=== PATIENT | female | born 1990 | race Caucasian/White ===

== ENCOUNTER 2025-02-11 22:42 | Observation (INO) | payer OTHER, SELFPAY ==
[2025-02-11 17:56] VITALS: BP 141/93
[2025-02-11 19:46] VITALS: BMI 26.6
[2025-02-11 19:49] VITALS: BP 131/99
--- NOTE | 2025-02-11 21:24 | ED.GENMED ---
History of Present Illness
General
Chief Complaint: Esophageal Problem
Source: patient
Exam Limitations: none
Time Seen by Provider: 02/11/25 19:56
Nursing documentation reviewed up to this point in time: agreed with
History of Present Illness
History of Present Illness:
Patient to ED with complaint of esophageal food bolus. States she was eating chicken at lunch, food became stuck. No difficulty breathing. Able to tolerate her secretions. Vomiting any po fluids. SHe had a similar event a few years ago. SHe
required removal of bolus in GI lab (another facility). To ED with sig other for eval.
Past History
Past History
ED Past Medical History: None
Review of Systems
Review of Systems
Allergies reviewed?: Yes
All Other Systems: ROS reviewed and negative except as documented in HPI and ROS
Constitutional: Reports no symptoms
EENT: Reports no symptoms
Respiratory: Reports no symptoms
Cardiac: Reports no symptoms
ABD/GI: Reports vomiting (esophageal food bolus, not tolerating po fluid) and other (esophageal food bolus)
: Reports no symptoms
Musculoskeletal: Reports no symptoms
Skin: Reports no symptoms
Neurological: Reports no symptoms
Psychiatric: Reports no symptoms
Phy Exam
General Physical Exam
General Presentation: mild distress
General age: appears stated age
General Skin: warm and dry
General Habitus: normal
Cardiovascular Exam
Cardiovascular Exam: regular rate/rhythm and no edema
Musculoskeletal Exam
Musculoskeletal Exam: full ROM
Skin Exam
Skin Exam: normal color, warm/dry and no rash
Psychiatric Exam
Psychiatric Exam: normal mood/affect
Course
Orders/Labs/Results
Orders:
Orders
02/11/25 20:25
Glucagon [GlucaGen] 1 mg IV NOW STA
02/11/25 21:37
Test Result ONCE
02/11/25 21:45
0.9% Sodium Chloride 1000 ml [Nss] 1,000 ml IV 125 mls/hr
02/11/25 22:02
Complete Blood Count/With Diff Urgent
Comprehensive Metabolic Panel Urgent
HCG, Serum Qualitative Screen Urgent
02/11/25 22:11
CR Chest - 2 Views Urgent
Comment:
Reason For Exam: swallowed fb
02/11/25 22:16
Admit/Transfer Patient As Directed
Co-Sign Provider:
Level of Care: Observation services
Assign to:: Medical/Surgical
Physician / Group: Bryant Grayson
Diagnosis: presumed esophageal food impaction
PRN Pain Medication Management As Directed
May give lesser potent ordered pain med per pt: Yes
preference::
Protocol:: Medication orders for pain may be administered in a
manner that supports deferring to patient preference
when the pt is:
- Requesting an ordered lesser potent pain medication.
Least to most potent pain medications are defined
as: acetaminophen < NSAID < tramadol < opioids
(morphine, oxycodone, hydromorphone).
- Requesting a lesser dose of the same medication IF
ORDERED.
- Requesting a less intrusive route of administration
if both routes are prescribed by the provider (PO <
IV).
02/11/25 22:17
Code Status As Directed
Resuscitation Status: Full Code
02/12/25 00:08
GASTROINTESTINAL CONSULT Routine
Consulting Provider: Jennifer Beatty
Was physician already notified: Yes
Activity As Directed
Activity Level: Ambulate
Intake/ Output As Directed
Frequency: Per unit guidelines
Pneumatic Compression Sleeves As Directed
Type: Knee high
Vital Signs As Directed
Frequency: Per unit guidelines
Weight As Directed
Frequency: Once
Comment: on admission
DX Deep Vein Thrombosis Video Routine
02/12/25 Breakfast
NPO
Allow oral meds: No
Allow clear liquids: No
Abnormal Lab Results
02/11/25
22:02
WBC 12.1 H 10^3/uL
(4.8-10.8)
RBC 4.19 L 10^6/uL
(4.20-5.40)
Hct 36.5 L %
(37.0-47.0)
MPV 10.9 H fL
(7.4-10.4)
Absolute Neuts (auto) 9.3 H 10^3/uL
(1.4-6.5)
Neutrophils % 76.7 H %
(42.2-75.2)
Lymphocytes % 17.7 L %
(20.5-51.1)
Glucose 144 H mg/dl
(70-99)
Total Bilirubin 1.8 H mg/dl
(0.2-1.3)
ALT 37 H U/L
(0-35)
02/11/25 22:02
02/11/25 22:02
Vital Signs
Initial and Last Documented VS:
Initial Vital Signs
Temp Pulse Resp BP Pulse Ox
98.4 F 80 16 141/93 100
02/11/25 17:56 02/11/25 17:56 02/11/25 17:56 02/11/25 17:56 02/11/25 17:56
Last Documented Vital Signs
Temp Pulse Resp BP Pulse Ox
98.8 F 57 18 105/56 96
02/12/25 00:05 02/12/25 00:05 02/12/25 00:05 02/12/25 00:05 02/12/25 00:05
*Pulse Oximetry
SaO2: 99
Oxygen Mode of Delivery: Room air
Patient hypoxic: no
*Critical Care Note
Total Time (30-74mins, 75-104mins- exclusive of procedures): Not Applicable
Update Note
Update Note:
Patient to ED wtih report of esophageal food bolus. Given glucagon in ED without improvement. Unable to tolerate po fluids. No difficulty breathing. Able to handle secretions. Dr. Beatty consulted. Requests admission tonight, to GI lab in AM
ED Attending Note
-
Portions of this chart may have been created with voice recognition software.� Occasional wrong word or��sound alike� substitutions may have occurred due to the inherent limitations of voice recognition software.
Discharge Plan
Departure
Patient Disposition: Admit
Date of Disposition: 02/11/25
Time of Disposition: 21:35
Presentation/result/management discussed w/ accepting MD/DO: Hospitalist
Patient with high blood pressure during this ER visit?: No
Condition: Fair
Covid-19: Not Applicable
Discharge Problem:
Food impaction of esophagus
Interventions
Interventions:
*Risk Screen - Suicide Last Done: 02/12/25 00:05
*General Assessment Last Done: 02/11/25 17:56
*Neglect/Abuse Screening Last Done: 02/11/25 19:47
*ED- Fall Risk Assessment Last Done: 02/11/25 19:47
*ED COVID-19 Vaccine History Last Done: 02/11/25 19:47
*ED Influenza Vaccine History Last Done: 02/11/25 19:47
*Nursing Disposition Last Done: 02/11/25 23:15
FQ-Glfzsp-[id number] Assessment Last Done: 02/11/25 19:57
ED-EENT Assessment Last Done: 02/11/25 19:57
Discharge Date and Time
Discharge Date/Time: 02/11/25 23:17
[2025-02-11 21:37] VITALS: BP 122/89
--- NOTE | 2025-02-11 21:46 | HPS.HSE ---
Family Physician
-
Family Physician: Naya Coreas
Chief Complaint
-
suspected food bolus impaction
History of Present Illness
Patient is a 34-year-old female with no significant past medical history who presented to [facility] ED for evaluation of suspected food bolus impaction. Patient reports eating chicken at lunch when she felt food become lodged in esophagus. She did have
emesis that contained food content at first and now seems to just have secretions that are coming up. Patient denies any difficulty breathing and is able to tolerate her secretions at this time. Patient reports similar episode a few years ago where
she required food bolus removal in GI lab.
Medical History
Past Medical History
Past Medical History: Reports None
Past Surgical History: Reports Other
Additional Past Surgical History:
endoscopy to remove food bolus
Social History
Tobacco: Non-smoker
Alcohol: Occasional
Drug: None
Employment: Employed
Family History
Family History: Not pertinent
Allergies / Home Medications
Allergies reflects when Allergies were last updated in [employer].
Home Medications with original date entered in [employer]
Allergy/Medication List:
Allergies
Allergy/AdvReac Type Severity Reaction Status Date / Time
No Known Allergies Allergy Verified 02/11/25 19:46
Home Medications
norgestimate-ethinyl estradiol 0.18mg/0.215mg/0.25mg-0.035mg(28)tablet 1 tab PO DAILY 02/11/25
Review of Systems
-
History Source: Patient
Constitutional: Denies Fever or Chills
EENT: Denies Sore Throat
Respiratory: Denies Cough or Trouble Breathing
Cardiac: Denies Chest Pain, Diaphoresis, Palpitations or Syncope
Abdomen/GI: Reports Nausea, Vomiting and Other (food impaction with emesis ); Denies Abdominal Pain or Diarrhea
: Denies Dysuria, Frequency, Flank Pain or Urgency
Skin: Denies Rash
Neurological: Denies Dizzy, Headache, Weakness or Numbness
Physical Exam
Vital Signs
Vital Signs
Temp Pulse Resp BP Pulse Ox
98.4 F 63 18 122/89 99
02/11/25 17:56 02/11/25 21:37 02/11/25 21:37 02/11/25 21:37 02/11/25 21:37
Physical Exam
General: Well Developed, Well Nourished, No Apparent Distress, Comfortable and Conversant
HEENT: NormoCephalic, Moist mucous membranes, PERRLA, Nose Appears Normal and Ears Appear Normal
Respiratory: Clear and Non Labored Respirations; No Wheezes, Rales, Rhonchi or Crackles
Cardiac: S1/S2 and Regular Rhythm; No Murmur, Rub, Gallop or Peripheral Edema
Breast: Deferred by me
GI: Soft, Non Tender, Non Distended and Normal Bowel Sounds
Rectal: Deferred by Provider
Genito-urinary: Deferred by me
Musculoskeletal: No Clubbing, No Cyanosis and No Edema
Skin: Warm and IV/Catheter Site
Neuro: Awake and AO x 3
Hematologic/Lymphatic: No Lymphadenopathy
Psych: Calm and Intact Judgment/Insight
Data Reviewed
-
Lab Data: Labs Reviewed by me
Impression/Plan
-
IMPRESSION/PLAN:
#presumed esophageal food impaction
emesis of all PO fluid intake
able to tolerate secretions
denies difficulty breathing
labs unremarkable
CXR: pending
- Admit to med/surg
- Consult GI
- NPO
- supportive care
Code status: full code
DVT prophylaxis: SCDs
--- NOTE | 2025-02-11 21:53 | W.PN.UPDATE ---
Update Note
Progress Note Update
This note serves as an addendum to the H&P by physical therapist clinic director ROSA MARIA�
Maureen Millan
HPI
34F no o prior PMHX seen at ER:
- pw presumed esophageal food bolus
- she was eating chicken at lunch, food became stuck.
- no difficulty breathing - able to tolerate her secretions.
- vomiting any po fluids
- similar event a few years ago- she required removal of bolus in GI lab (another facility).
Relevant VS
Temp Pulse Resp BP Pulse Ox
98.4 F 63 18 122/89 99
02/11/25 17:56 02/11/25 21:37 02/11/25 21:37 02/11/25 21:37 02/11/25 21:37
PE
Gen: NAD
HEENT: no oral pooling
Relevant Data: pending
ASSESSMENT & PLAN
Presumed esophageal food impaction
Vomiting PO fluid s
No difficulty breathing - able to tolerate her secretions.
- s/p Glucagon at ER
- CXR
- NPO and IVF
- GI consulted by ER - suggest EGD disimpaction in AM
DVT Px:SCD
Full code
OBS MS
[2025-02-11] MEDS: NSS 1000 IV (22:04)
[2025-02-11 22:08] LABS: Hematocrit 36.5 % (37.0-47.0); Hemoglobin 12.5 g/dL (12.0-16.0); Mean Corp Hgb Conc. 34.2 g/dL (33.0-37.0); Mean Corpuscular Volume 87.1 fL (81.0-99.0); Nucleated Red Blood Cells % 0 %; Platelet Count 172 10^3/uL (130-400); Red Cell Dist. Width 12.0 % (11.5-14.5)
[2025-02-11 22:18] LABS: HCG, Serum Qualitative Screen Negative
[2025-02-11 22:22] LABS: ALT (SGPT) 37 U/L (0-35); AST (SGOT) 32 U/L (14-36); Albumin 4.2 g/dl (3.5-5.0); Alkaline Phosphatase 52 U/L (38-126); Blood Urea Nitrogen 12 mg/dl (7-17); Calcium 8.7 mg/dl (8.4-10.2); Carbon Dioxide 26 mmol/L (22-30); Chloride 106 mmol/L (98-107); Estimated Creatinine Clearance 82 ml/min; Glucose 144 mg/dl (70-99); Potassium 3.9 mmol/L (3.5-5.1); Sodium 139 mmol/L (135-145); Total Protein 7.6 g/dl (6.3-8.2); eGFR > 60.00
--- NOTE | 2025-02-11 22:40 | PTCARENOTE ---
Pt recieved from ED via stretcher at 2200. Pt AAOx3, VSS, absent of pain, able to ambulate into room without assistance. Pt complained of slight nausea - see MAR. Pt receptive to room and call leal. Pt bed in lowest position and call leal within
reach. Pt educated on importance of call leal usage, pt relays understanding and cooperation. Will continue with current plan of care.
[2025-02-12 00:05] VITALS: BP 105/56; BMI 26.4
[2025-02-12] MEDS: ZOFRAN 4 MG IV (00:27)
[2025-02-12] MEDS: NSS 1000 IV (06:21)
[2025-02-12 08:00] VITALS: BP 113/67
[2025-02-12 09:04] VITALS: BP 113/67; BP 126/73
--- NOTE | 2025-02-12 09:12 | CON.GI ---
Addendum entered and electronically signed by Shweta Burns MD 02/12/25 09:24:
Also with mildly elevated bilirubin most likely has Gilbert syndrome and mildly elevated ALT would repeat LFTs with her PCP in 1 to 2 weeks.
Original Note:
Consultation
-
Date/Time Consultation Requested: 02/11/2025
Date/Time Consultation Performed: 02/12/2025
Requesting Provider:
Performing Provider:
Reason for Consultation: Food bolus impaction
Medical History
Chief Complaint / HPI
Chief Complaint: food impaction
History of Present Illness:
This is a very pleasant 35-year-old female with no significant past medical history who presented to the emergency room with a food bolus impaction. She says that yesterday afternoon she had eaten lunch and after eating chicken a couple of bites
she felt that it was stuck and could not pass it and she was unable to eat or drink after that and presented to the emergency room though only around 8 or 9 PM last night. She was given 2 doses of glucagon but she did not feel that it passed but
she was able to swallow secretions. She had a similar history of food bolus impaction about 2 to 3 years ago and presented to [facility] and had endoscopy with removal of the food bolus. She really denies any symptoms of dysphagia between these
episodes. She also denies any symptoms of acid reflux. She has no allergies no asthma or food allergies either. She currently denies any chest pain or shortness of breath or abdominal pain. Her bowel movements are pretty regular.
Past Medical History
Past Medical History: Other (food bolus impaction 2 to 3 years ago at [facility] and had EGD with removal)
Past Surgical History: None
Social History
Tobacco: Non-Smoker
Alcohol: Occasional
Drug: None
Family History
Family History: Reviewed & Not Pertinent
Allergies / Home Medications
Allergy/AdvReac Type Severity Reaction Status Date / Time
No Known Allergies Allergy Verified 02/11/25 19:46
�Medication �Instructions �Recorded
norgestimate-ethinyl estradiol 1 tab PO DAILY OBC 02/11/25
0.18mg/0.215mg/0.25mg-0.035mg(28)tablet
Review of Systems
-
All other systems: A 12 pt ROS was Negative except as stated above in HPI
Vital Signs
Temp Pulse Resp BP Pulse Ox
98.9 F 79 15 126/73 99
02/12/25 08:00 02/12/25 09:05 02/12/25 09:05 02/12/25 09:04 02/12/25 08:00
Physical Exam
Exam
General: No Apparent Distress
HEENT: Normocephalic
Respiratory: Clear
Cardiac: S1/S2 and Regular Rhythm
GI: Soft, Non Tender, Non Distended and Normal Bowel Sounds
Neuro: Awake, Alert and Oriented
Psych: Calm
Results
WBC 12.1 10^3/uL (4.8-10.8) H 02/11/25 22:02
Hgb 12.5 g/dL (12.0-16.0) 02/11/25 22:02
Hct 36.5 % (37.0-47.0) L 02/11/25 22:02
MCV 87.1 fL (81.0-99.0) 02/11/25 22:02
Plt Count 172 10^3/uL (130-400) 02/11/25 22:02
Absolute Neuts (auto) 9.3 10^3/uL (1.4-6.5) H 02/11/25 22:02
Sodium 139 mmol/L (135-145) 02/11/25 22:02
Potassium 3.9 mmol/L (3.5-5.1) 02/11/25 22:02
Chloride 106 mmol/L (98-107) 02/11/25 22:02
Carbon Dioxide 26 mmol/L (22-30) 02/11/25 22:02
BUN 12 mg/dl (7-17) 02/11/25 22:02
Creatinine 0.9 mg/dL (0.6-1.0) 02/11/25 22:
Calcium 8.7 mg/dl (8.4-10.2) 02/11/25 22:02
Total Bilirubin 1.8 mg/dl (0.2-1.3) H 02/11/25 22:
AST 32 U/L (14-36) 02/11/25 22:
ALT 37 U/L (0-35) H 02/11/25 22:
Alkaline Phosphatase 52 U/L (38-126) 02/11/25 22:
Diagnostic Image Results:
Prior GI Procedures:
EGD: 2 or 3 years ago at [facility] for food bolus removal
Colonoscopy: none
Assessment / Plan
-
This is a 34 year old female with 2 nd episode of food bolus impaction, the first episode was about 2 to 3 years ago and had EGD with removal of food bolus and now presents after she had eaten chicken at lunch yesterday around 2 PM and received 2
doses of glucagon in the ER last night and able to swallow secretions but still feels that the food is stuck. Will schedule upper endoscopy with removal of food bolus if still present. She really denies any symptoms of dysphagia between these
episodes but if there is no evidence of stricture or ring noted will take esophageal biopsies to rule out possible EOE. If there is evidence of ring or stricture will dilate. she denies any symptoms of reflux either.
-
-
Thank you for consultation and allowing me to participate in the patient's care. Please call the line construction engineer GI physician during the after hours with any questions or concerns.
[2025-02-12 09:15] VITALS: BP 118/73
--- NOTE | 2025-02-12 09:52 | W.PN.HOSP.TC ---
Today's Communication/Plan
-
Discharge
Assessment / Plan
Assessment / Plan
Gen-AAOx3, NAD
HEENT-NC, AT, anicteric, clear oral mm
Neck-supple
CV-reg, no M, +S1/S2
Lungs-clear B/L
Abd-soft, NT, ND
Ext-no edema
Musculoskeletal-no cyanosis, clubbing
Skin-warm and dry
Neuro-grossly non-focal
Psych-calm, cooperative
Esophageal food impaction -spontaneously improved. No impaction noted on endoscopy today.
Second episode of impaction in her lifetime. Denies episodes of dysphagia in between her impactions.
EGD done today, shows LA grade B esophagitis with a small ulcer at the GE junction from recently impacted food. Biopsies were taken to rule out eosinophilic esophagitis.
GI recommends discharge today on Protonix 40 mg daily for 6 weeks, follow-up in the office in 3 months. Await pathology results.
Soft foods on discharge for a couple days, discussed with patient.
Dispo -medically stable for discharge today. Outpatient follow-up.
32-minute spent in discharge process.
Anticipated Discharge: Today
Subjective/Interval History
-
Date of Service: February 12, 2025
Patient seen and examined, no complaints.
Objective Data
-
Labs:
Laboratory Results
02/11/25
22:02
WBC 12.1 H
Hgb 12.5
Hct 36.5 L
Plt Count 172
Sodium 139
Potassium 3.9
Chloride 106
Carbon Dioxide 26
BUN 12
Creatinine 0.9
Glucose 144 H
Calcium 8.7
Total Bilirubin 1.8 H
AST 32
ALT 37 H
Alkaline Phosphatase 52
Vital Signs:
Vital Signs
Temp Pulse Resp BP Pulse Ox
97.3 F 76 20 118/73 100
02/12/25 09:26 02/12/25 09:15 02/12/25 09:15 02/12/25 09:15 02/12/25 09:26
I&O
02/11/25 02/12/25 02/13/25
06:59 06:59 06:59
Intake Total 100 / 100
Balance 100 / 100
Review of Systems
-
History Source: Patient
All other systems: Reviewed and negative
--- NOTE | 2025-02-12 10:04 | W.DS.TRANS ---
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
-
Discharge Instructions:
Discharge Diagnosis/Procedures Esophageal food impaction, esophagitis, small
distal esophageal ulcer
Diet Other diet
Additional Diets Soft food for 48 hours then your usual diet
Activity As tolerated
Driving Restrictions No driving for 24 hours
Bathing Restrictions None
Instructions:
Stand-Alone Forms:
Changes to Home Medications: No
Discharge Medications:
DC Medications w/original date entered in [employer]
norgestimate-ethinyl estradiol 0.18mg/0.215mg/0.25mg-0.035mg(28)tablet 1 tab PO DAILY OBC 02/11/25
pantoprazole 40 mg tablet,delayed release 40 mg PO DAILY #45 tabs 02/12/25
Home Medication Changes
Pending Results: No
[2025-02-12] MEDS: PROTONIX 40 MG PO (10:18)
--- NOTE | 2025-02-12 10:41 | CM ---
CM reviewed chart, patient seen bedside, initial assessment completed.
Patient is a 34-year-old female with no significant past medical history who presented to [facility] ED for evaluation of suspected food bolus impaction.
Patient resides with her significant other in a multiple story home. Patient is independent with ADLS/IADLs, denies use of DME, VN/SNF.
Patient is employed.
PCP Naya Coreas, pharmacy [facility], patient confirms insurance coverage.
Patient denies insecurities at home.
OBS form verbally reviewed, placed in chart, patient provided with copy.
Patient for d/c today, confirms transport home.
Plan; home no needs
[2025-02-12 12:00] VITALS: BP 120/75
[2025-02-12 16:00] VITALS: BP 115/66
== END 2025-02-12 16:30 | disposition home or self-care (01) ==
LOC: 4 WEST ACU 22:42
PROVIDERS: Nurse Practitioner; ADMITTING PHYSICIAN Internal Medicine; ATTENDING PHYSICIAN Hospitalist; EMERGENCY PHYSICIAN Emergency Medicine; FAMILY PHYSICIAN Family Medicine; OTHER PHYSICIAN Internal Medicine Gastroenterology
DX: K20.90 Esophagitis, unspecified without bleeding (principal); T18.128A Food in esophagus causing other injury, initial encounter; W44.F3XA Food entering into or through a natural orifice, initial encounter; K25.9 Gastric ulcer, unspecified as acute or chronic, without hemorrhage or perforation
CPT/HCPCS: 43239; 71046; 80053; 84703; 85025; 88305; 96361; 96374; 99285; G0378; J1610